=== PATIENT | male | born 2000 | race Caucasian/White ===

== ENCOUNTER 2019-11-23 19:26 | Emergency (ER) | payer OTHER ==
[~2019-11-23] VITALS: Ht 190.5 cm; Wt 93.9 kg
[2019-11-23 19:34] VITALS: Ht 190.5 cm; Wt 93.9 kg
[2019-11-23 20:54] VITALS: BP 125/75
== END 2019-11-23 20:54 | disposition home or self-care (01) ==
LOC: ED 19:26
DX: M54.5 Low back pain (principal); E03.9 Hypothyroidism, unspecified
CPT/HCPCS: J1885